=== PATIENT | male | born 1975 | race Caucasian/White ===

== ENCOUNTER 2018-12-07 11:33 | Emergency (ER) | payer MEDICAID ==
[~2018-12-07] VITALS: Ht 157.5 cm; Wt 74.4 kg
[2018-12-07 11:38] VITALS: Ht 157.5 cm; Wt 74.4 kg
[2018-12-07 12:28] LABS: BASOPHIL % 0.3 % (0-2); PLATELET COUNT 236 x10^3mcL (130-400); RED CELL DISTRIBUTION WIDTH 13.4 % (11.5-14.5)
[2018-12-07 12:38] LABS: FREE T4 1.09 ng/dL (0.76-1.46); FREE THYROXINE INDEX 3.1 ug/dL (1.4-4.5); T4(THYROXINE) 8.2 ug/dL (4.7-13.3)
[2018-12-07 12:45] LABS: T3 TOTAL 1.09 ng/mL
[2018-12-07 12:59] LABS: microscopic required? NO
[2018-12-07 13:04] LABS: CALCIUM 9.1 mg/dL (8.5-10.1); CARBON DIOXIDE 24.1 mmol/L (21-32); CHLORIDE SERUM 101 mmol/L (98-107); CREATININE SERUM 0.7 mg/dL (0.7-1.3); GFR1 > 60 mL/min; GLUCOSE SERUM 297 mg/dL (74-106); POTASSIUM SERUM 3.5 mmol/L (3.5-5.1); SODIUM SERUM 135 mmol/L (136-145)
[2018-12-07 13:08] LABS: ALBUMIN 3.7 g/dL (3.4-5.0); ALKALINE PHOSPHATASE 123 U/L (46-116); ALT/SGPT 43 U/L (16-63); AST/SGOT 8 U/L (15-37); BILIRUBIN TOTAL 0.35 mg/dL (0.20-1.00); LIPASE 82 IU/L (73-393); TOTAL PROTEIN, SERUM 7.9 g/dL (6.4-8.2); TRIGLYCERIDES 103 mg/dL (<150)
[2018-12-07 13:11] LABS: CHOLESTEROL 210 mg/dL (<200); CHOLESTEROL/HDL RATIO 6.8; HDL CHOLESTEROL 31 mg/dL (40-60)
[2018-12-07 13:15] LABS: urine erythrocyte NEGATIVE (NEGATIVE)
[2018-12-07 13:24] LABS: AMPHETAMINE QUAL UR NONE DETECTED (See below)
[2018-12-07 14:11] VITALS: BP 147/90
== END 2018-12-07 14:11 | disposition home or self-care (01) ==
LOC: ED 11:33
PROVIDERS: Specialist
DX: I10 Essential (primary) hypertension (principal); E11.9 Type 2 diabetes mellitus without complications; R07.89 Other chest pain
CPT/HCPCS: 82962; 83880; 84439; G0480; J3490; J7030; Q0092

== ENCOUNTER 2019-02-08 11:49 | Emergency (ER) | payer SELFPAY ==
[~2019-02-08] VITALS: Ht 157.5 cm; Wt 73.9 kg
[2019-02-08 12:02] VITALS: Ht 157.5 cm; Wt 73.9 kg
[2019-02-08 12:25] LABS: BASOPHIL % 0.8 % (0-2); PLATELET COUNT 254 x10^3mcL (130-400); RED CELL DISTRIBUTION WIDTH 13.4 % (11.5-14.5)
[2019-02-08 12:34] LABS: CALCIUM 8.7 mg/dL (8.5-10.1); CARBON DIOXIDE 25.7 mmol/L (21-32); CHLORIDE SERUM 105 mmol/L (98-107); CREATININE SERUM 0.6 mg/dL (0.7-1.3); GFR1 > 60 mL/min; GLUCOSE SERUM 137 mg/dL (74-106); POTASSIUM SERUM 3.8 mmol/L (3.5-5.1); SODIUM SERUM 140 mmol/L (136-145)
[2019-02-08 12:39] LABS: ALBUMIN 3.7 g/dL (3.4-5.0); ALKALINE PHOSPHATASE 103 U/L (46-116); ALT/SGPT 22 U/L (16-63); AST/SGOT 7 U/L (15-37); TOTAL PROTEIN, SERUM 7.9 g/dL (6.4-8.2)
[2019-02-08 13:55] VITALS: BP 136/89
== END 2019-02-08 13:55 | disposition home or self-care (01) ==
LOC: ED 11:49
DX: I10 Essential (primary) hypertension (principal); R73.9 Hyperglycemia, unspecified
CPT/HCPCS: 36415; Q0092